=== PATIENT | female | born 1990 | race African-American/Black ===

== ENCOUNTER 2021-02-20 16:33 | Observation (INO) | payer BC, SELFPAY ==
[2021-02-20] VITALS (7 sets, daily range): BP systolic 99–123; BP diastolic 60–83; PULSE 77–104; TEMP 36.2; BMI 39.0
--- NOTE | 2021-02-20 17:22 | OBADM ---
This patient, Soledad Harper, admitted to the OB room Labor/Delivery/Recovery 109 for observation. Patient/family oriented to hospital policies and general routines including ID bracelet, bed and alarms, visiting hours, pain management, procedures, bathroom and other care routines, personal items, smoking policy, room service/diet, and visiting hours. Patient/Family are encouraged to report perceived risks to care and to ask questions if they do not understand what they are told or what they should do.
--- NOTE | 2021-02-20 17:27 | PC.NURSE ---
1720- called,informed pt came in stating she is in labor and has been lazara since 529. She was a pt of 's and has not seen an OB since sometime in December she thinks. Pt states she came here because she found out the new OB in that office delivers in [place] and that is too far for her to drive. Pt states she was given Valtrex to take for genital herpes and stopped taking it 2 weeks ago d/t making her nauseous. Pre-vidhya reviewed from September. Orders received to observe pt for another 1-1.5 hrs then re-check cervix.
--- NOTE | 2021-02-20 20:53 | PM.OBTRLD ---
OB - Triage/Final Diagnosis Visit Information Date of evaluation: 02/20/21 Reason for evaluation: threatened labor Comments/Additional reasons for admission: I have assessed the risk for this patient, Soledad Harper, and determined that she would benefit from observation care. Evaluation Vital signs: Vital Signs - 24 hr 02/20/21 17:09 02/20/21 17:15 02/20/21 17:30 Temperature Pulse Rate 96 104 H 100 Blood Pressure 123/74 118/82 115/83 02/20/21 17:45 02/20/21 18:00 02/20/21 18:08 Temperature 36.2 C L Pulse Rate 93 83 Blood Pressure 99/60 L 99/63 L 02/20/21 18:15 Temperature Pulse Rate 77 Blood Pressure 101/64
== END 2021-02-20 19:58 | disposition home or self-care (01) ==
PROVIDERS: Admitting Provider Student in an Organized Health Care Education/Training Program; Visit Provider Student in an Organized Health Care Education/Training Program
DX: O47.1 False labor at or after 37 completed weeks of gestation (principal); Z3A.38 38 weeks gestation of pregnancy
CPT/HCPCS: G0378; G0379